=== PATIENT | female | born 1990 | race Two or more races ===

== ENCOUNTER 2023-04-28 10:12 | Emergency (ER) | payer MEDICAID ==
[~2023-04-28] VITALS: Ht 157.5 cm; Wt 63.5 kg
--- NOTE | 2023-04-28 10:40 | NUR ---
PT HERE FOR ABBY ON LT SIDE OF FACE FOR ONE WEEK NO REDNEESS
[2023-04-28] MEDS ORDERED: AMOX-430 PO ×2 (11:17→11:52)
[2023-04-28] MEDS ORDERED: IBUP-1955 PO ×2 (11:17→11:52)
--- NOTE | 2023-04-28 11:53 | NUR ---
Patient discharged to home in stable condition. Written and verbal after care instructions given. Patient verbalizes understanding of instruction.
[2023-04-28 11:54] VITALS: BP 119/71
== END 2023-04-28 11:54 | disposition home or self-care (01) ==
LOC: ER 10:16
DX: K04.7 Periapical abscess without sinus (principal)